=== PATIENT | female | born 1965 | race Caucasian/White ===

== ENCOUNTER 2016-07-01 18:56 | Emergency (ER) | payer OTHER ==
[2016-07-01 19:06] VITALS: BP 120/53
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
[2016-07-01] MEDS ORDERED: METHOCARBAMOL 500 MG TABLET PO ONE (20:15)
[2016-07-01] MEDS ORDERED: IBUPROFEN 600 MG TABLET PO ONE (20:15)
[2016-07-01] MEDS: IBUPROFEN 600 MG TABLET PO STA (20:17)
[2016-07-01] MEDS: METHOCARBAMOL 500 MG TABLET PO STA (20:17)
--- NOTE | 2016-07-01 21:03 | XRAY Preliminary Report ---
Exam: XR Cervical Spine 2 View IMPRESSION: 1. Degenerative disk disease at C5-C6 and C6-C7, more pronounced and moderate at C6-C7. 2. Mild multilevel facet arthropathy in the upper/mid cervical spine. 3. No acute bony abnormality. [facility] SITE ID: [id number]
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
--- NOTE | 2016-07-01 21:07 | XRAY Preliminary Report ---
Exam: XR Thoracic Spine 2 View IMPRESSION: 1. Minimal S-shaped curvature of the mid/lower thoracic spine. 2. Mild multilevel degenerative disk disease in the mid/lower thoracic spine. 3. No acute bony abnormality. [facility] SITE ID: [id number]
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
== END 2016-07-01 21:10 | disposition home or self-care (01) ==
LOC: ED 18:56
DX: S16.1XXA Strain of muscle, fascia and tendon at neck level, initial encounter (principal); S29.012A Strain of muscle and tendon of back wall of thorax, initial encounter; V43.52XA Car driver injured in collision with other type car in traffic accident, initial encounter; Y92.488 Other paved roadways as the place of occurrence of the external cause; M50.323 Other cervical disc degeneration at C6-C7 level; M51.36 Other intervertebral disc degeneration, lumbar region; M06.9 Rheumatoid arthritis, unspecified
CPT/HCPCS: 72040; 72070; 99283